=== PATIENT | male | born 1955 | race Caucasian/White ===

== ENCOUNTER 2023-05-31 12:22 | Emergency (ER) | payer MEDICARE, MEDICAID ==
[~2023-05-31] VITALS: Ht 185.4 cm; Wt 77.3 kg
[2023-05-31 12:42] VITALS: TEMP 97.5
[2023-05-31] MEDS ORDERED: morphine 4 MG/ML inj SYRINge IV ONE (15:05)
[2023-05-31] MEDS ORDERED: ketamine 50 mg/ml 10ml vial IV ONE (15:15)
[2023-05-31] MEDS ORDERED: MIDAZolam 5mg/ml 2ml vial IV ONE (15:15)
[2023-05-31] MEDS ORDERED: ketamine 50mg/5ml syringe IV ONE (16:15)
[2023-05-31] MEDS ORDERED: CEFAZOLIN 2 GM injection IM ONE (16:25)
[2023-05-31] MEDS ORDERED: ceFAZolin/D5W- 1GM premix 50 ML IV ONE (16:30)
--- NOTE | 2023-05-31 16:32 | NUR ---
recieved report assuming care of pt during moderate sedation. md consulted with ortho reduction of left wrist to proceed in er rm 8. waiting on ancef 1 gm from pharmacy at present time.
[2023-05-31] MEDS ORDERED: bacitracin 15gm ointment TP SCH (16:41)
[2023-05-31] MEDS ORDERED: bacitracin 15gm ointment TP ONE (16:41)
[2023-05-31] MEDS ORDERED: HYDR-3965 PO ×2 (18:01→19:03)
[2023-05-31] MEDS ORDERED: IBUP-1984 PO (18:01)
[2023-05-31 18:10] VITALS: BP 126/81; PULSE 64; O2SAT 94
[2023-05-31] MEDS ORDERED: HYDROcodone/acetaminophen 5mg/325mg tablet PO ONE (18:50)
[2023-05-31 18:57] VITALS: RESP 16
[2023-05-31] MEDS ORDERED: neomy sulf/bacitrac zn/polymixin b oint 14.2 gm tube TP SCH (21:00)
== END 2023-05-31 19:08 | disposition home or self-care (01) ==
LOC: ER 12:23
DX: S52.592A Other fractures of lower end of left radius, initial encounter for closed fracture (principal); W18.39XA Other fall on same level, initial encounter; Y93.89 Activity, other specified; Y92.89 Other specified places as the place of occurrence of the external cause; Y99.8 Other external cause status
CPT/HCPCS: 25605; 73100; 73110; 96365; 96375; 99152; 99153; 99285; J0690; J2250; J2270; J3490; J7030; 94760; A4615; A4620